=== PATIENT | female | born 1990 | race Caucasian/White ===

== ENCOUNTER 2022-12-02 23:13 | Inpatient (IN) | payer BC, MEDICAID ==
[~2022-12-02] VITALS: Ht 162.6 cm; Wt 98.9 kg
[2022-12-03 00:18] LABS: HEMATOCRIT 39.3 % (36-48); MEAN CORPUSCULAR HEMOGLOBIN 29.4 pg (27.0-33.0); MEAN CORPUSCULAR HGB CONC 33.3 g/dL (32.0-36.0); MEAN CORPUSCULAR VOLUME 88.1 fL (79-99); PLATELET COUNT (AUTO) 237 K/uL (130-400); RED BLOOD CELL COUNT(AUTO) 4.46 MIL/uL (4.00-5.50); RED CELL DISTRIBUTION WIDTH 13.6 % (11.0-15.5); WHITE BLOOD COUNT (AUTO) 11.7 K/uL (4.8-10.8)
[2022-12-03 00:28] LABS: BASOPHILS # (AUTO) 0.04 K/uL (0.00-0.20); BASOPHILS % (AUTO) 0.4 % (0.0-5.0); EOSINOPHILS # (AUTO) 0.18 K/uL (0.00-0.70); EOSINOPHILS % (AUTO) 1.6 % (0.0-8.0); IMMATURE GRANULOCYTE ABSOLUTE 0.07 K/uL (0-1); LYMPHOCYTES # (AUTO) 2.5 K/uL (1.0-4.8); LYMPHOCYTES % (AUTO) 21.7 % (21.0-51.0); MONOCYTES # (AUTO) 0.9 K/uL (0.1-1.0); MONOCYTES % (AUTO) 7.5 % (3.0-13.0); NEUTROPHILS # (AUTO) 7.8 K/uL (1.8-7.7); NEUTROPHILS % (AUTO) 68.2 % (40.0-77.0)
[2022-12-03] MEDS ORDERED: 0.9%NACL 1000ML 1,000 ML IV ONE (00:30)
[2022-12-03 00:37] LABS: APPEARANCE,URINE CLEAR (CLEAR); BILIRUBIN,URINE NEGATIVE (NEGATIVE); COLOR,URINE COLORLESS (YELLOW); GLUCOSE, URINE (UA) NEGATIVE (NEGATIVE); KETONES,URINE NEGATIVE (NEGATIVE); LEUKOCYTE ESTERASE ,URINE NEGATIVE Leu/uL (NEGATIVE); NITRATE,URINE NEGATIVE (NEGATIVE); OCCULT BLOOD,URINE NEGATIVE (NEGATIVE); PROTEIN,URINE NEGATIVE (NEGATIVE); UROBILINOGEN,URINE 0.2 mg/dL (0.2-1.0)
[2022-12-03 00:40] LABS: RAPID GROUP A STREP negative (NEGATIVE)
[2022-12-03 00:43] LABS: SARS-CoV-2, RNA, NAAT NEGATIVE SARS CoV-2 (NEGATIVE)
[2022-12-03 00:45] LABS: ADD UA MICROSCOPIC NO
[2022-12-03 00:53] LABS: INFLUENZA TYPE A Negative For Type A (NEGATIVE); INFLUENZA TYPE B Negative For Type B (NEGATIVE)
[2022-12-03 00:58] LABS: AMPHET/METH SCREEN,URINE NEGATIVE (NEGATIVE); BARBITURATE SCREEN, URINE NEGATIVE (NEGATIVE); BENZODIAZEPINES SCREEN,URINE NEGATIVE (NEGATIVE); CANNABINOID SCREEN,URINE NEGATIVE (NEGATIVE); COCAINE SCREEN,URINE NEGATIVE (NEGATIVE); OPIATE SCREEN,URINE NEGATIVE (NEGATIVE); PHENCYCLIDINE SCREEN,URINE NEGATIVE (NEGATIVE)
[2022-12-03 01:27] LABS: CREATININE 0.8 mg/dL (0.5-1.5); POTASSIUM 4.4 mmol/L (3.5-5.1)
[2022-12-03 01:32] LABS: ALBUMIN 3.1 g/dL (3.5-5.0); BILIRUBIN,TOTAL 0.3 mg/dL (0.2-1.0); TOTAL PROTEIN, SERUM 6.6 g/dL (6.0-8.3)
[2022-12-03] MEDS ORDERED: DiphenhydrAMINE HCL 50 MG/ML VIAL IV PRN (03:00)
[2022-12-03] MEDS ORDERED: ACETAMINOPHEN 325 MG TAB PO PRN ×2 (03:00)
[2022-12-03] MEDS ORDERED: MAG/ALUM/SIMETH 30 ML UDCUP PO PRN (03:00)
[2022-12-03] MEDS ORDERED: GUAIFENESIN-DM 200/20 MG 10 ML PO PRN (03:00)
[2022-12-03] MEDS ORDERED: ONDANSETRON 4MG INJ IV PRN (03:00)
[2022-12-03] MEDS ORDERED: LACTULOSE 20 GM/30 ML UDCUP PO PRN (03:00)
[2022-12-03] MEDS ORDERED: ALBUTEROL 0.083% 2.5 MG/3 ML INH IH PRN (03:00)
[2022-12-03] MEDS ORDERED: HYDRALAZINE 20MG/ML VIAL IV PRN (03:00)
[2022-12-03] MEDS ORDERED: ZOLPIDEM TARTRATE 5 MG TAB PO PRN (03:00)
[2022-12-03] MEDS ORDERED: NITROGLYCERIN 0.4 MG SL TAB SL PRN (03:00)
[2022-12-03 03:14] LABS: THYROID STIMULATING HORMONE 2.88 uIU/mL (0.36-3.74)
[2022-12-03 05:03] LABS: HEMOGLOBIN A1C 4.9 % (4.0-6.0)
[2022-12-03 05:06] LABS: TROPONIN I HIGH SENSITIVITY < 4 ng/L (4-50)
[2022-12-03 05:56] LABS: % IRON SATURATION 12.9 % (22-44); IRON, SERUM 33 mcg/dL (50-170); TOTAL IRON BINDING CAPACITY 255 mcg/dL (250-450)
[2022-12-03] MEDS: LACTATED RINGERS 1000ML 1,000 ML IV SCH ×3 (06:02→22:02)
[2022-12-03 06:54] LABS: BASOPHILS # (AUTO) 0.04 K/uL (0.00-0.20); BASOPHILS % (AUTO) 0.4 % (0.0-5.0); EOSINOPHILS # (AUTO) 0.15 K/uL (0.00-0.70); EOSINOPHILS % (AUTO) 1.6 % (0.0-8.0); HEMATOCRIT 37.1 % (36-48); IMMATURE GRANULOCYTE ABSOLUTE 0.03 K/uL (0-1); LYMPHOCYTES # (AUTO) 2.3 K/uL (1.0-4.8); LYMPHOCYTES % (AUTO) 24.6 % (21.0-51.0); MEAN CORPUSCULAR HEMOGLOBIN 29.4 pg (27.0-33.0); MEAN CORPUSCULAR VOLUME 86.7 fL (79-99); MONOCYTES # (AUTO) 0.6 K/uL (0.1-1.0); MONOCYTES % (AUTO) 6.3 % (3.0-13.0); NEUTROPHILS # (AUTO) 6.1 K/uL (1.8-7.7); NEUTROPHILS % (AUTO) 66.8 % (40.0-77.0); PLATELET COUNT (AUTO) 237 K/uL (130-400); RED BLOOD CELL COUNT(AUTO) 4.28 MIL/uL (4.00-5.50); RED CELL DISTRIBUTION WIDTH 13.7 % (11.0-15.5); WHITE BLOOD COUNT (AUTO) 9.1 K/uL (4.8-10.8)
[2022-12-03 07:15] LABS: ALBUMIN 3.2 g/dL (3.5-5.0); BILIRUBIN,DIRECT 0.1 mg/dL (0.0-0.3); BILIRUBIN,TOTAL 0.4 mg/dL (0.2-1.0); CREATININE 0.6 mg/dL (0.5-1.5); THYROID STIMULATING HORMONE 1.76 uIU/mL (0.36-3.74); TOTAL PROTEIN, SERUM 6.5 g/dL (6.0-8.3)
[2022-12-03 07:35] LABS: INR 0.93 (0.85-1.15); PROTHROMBIN TIME 10.3 SEC (9.6-11.6)
[2022-12-03 07:36] LABS: PARTIAL THROMBOPLASTIN TIME 27.1 SEC (26.3-35.5)
[2022-12-03 08:22] LABS: B-TYPE NATRIURETIC PEPTIDE 12 pg/mL (0-100)
[2022-12-03] MEDS: HEPARIN 5,000 UNIT VIAL SQ SCH ×3 (08:52→20:54)
[2022-12-03] MEDS: FAMOTIDINE 20MG VIAL IV SCH ×2 (08:53→20:54)
[2022-12-03] MEDS ORDERED: FAMOTIDINE 20MG VIAL IV SCH (09:00)
[2022-12-03] MEDS: ACETAMINOPHEN 325 MG TAB PO PRN ×2 (10:59→15:47)
[2022-12-03] MEDS: KETOROLAC 15MG/ML VIAL (15MG/ML) IV PRN (20:54)
[2022-12-03 20:57] VITALS: PULSE 66; RESP 18; O2SAT 97
[2022-12-03 21:30] VITALS: BP 106/58; PULSE 58; RESP 16
[2022-12-04] VITALS (13 sets, daily range): BP systolic 83–105; BP diastolic 48–68; PULSE 18–92; RESP 16–18; O2SAT 97–100
[2022-12-04] MEDS: ACETAMINOPHEN 325 MG TAB PO PRN ×3 (00:55→14:41)
[2022-12-04] MEDS: HEPARIN 5,000 UNIT VIAL SQ SCH ×3 (09:42→19:15)
[2022-12-04] MEDS: FAMOTIDINE 20MG VIAL IV SCH ×2 (09:43→19:16)
[2022-12-04] MEDS: LACTATED RINGERS 1000ML 1,000 ML IV SCH ×2 (09:53→19:00)
[2022-12-04] MEDS: MIDODRINE HCL 5 MG TABLET PO SCH ×2 (15:47→19:16)
[2022-12-05] VITALS (10 sets, daily range): BP systolic 78–127; BP diastolic 41–68; PULSE 64–127; RESP 16–19; O2SAT 97
[2022-12-05] MEDS: LACTATED RINGERS 1000ML 1,000 ML IV SCH (05:00)
[2022-12-05 07:11] LABS: HEMATOCRIT 36.4 % (36-48); MEAN CORPUSCULAR HEMOGLOBIN 29.3 pg (27.0-33.0); RED BLOOD CELL COUNT(AUTO) 4.09 MIL/uL (4.00-5.50); RED CELL DISTRIBUTION WIDTH 13.5 % (11.0-15.5); WHITE BLOOD COUNT (AUTO) 7.3 K/uL (4.8-10.8)
[2022-12-05 07:24] LABS: CREATININE 0.7 mg/dL (0.5-1.5); MAGNESIUM 1.8 mg/dL (1.80-2.40); POTASSIUM 3.7 mmol/L (3.5-5.1)
[2022-12-05] MEDS: FAMOTIDINE 20MG VIAL IV SCH ×2 (09:00→19:53)
[2022-12-05] MEDS: MIDODRINE HCL 5 MG TABLET PO SCH ×3 (09:00→20:03)
[2022-12-05] MEDS: HEPARIN 5,000 UNIT VIAL SQ SCH ×3 (09:00→21:00)
[2022-12-05] MEDS: 0.9%NACL 1000ML 1,000 ML IV SCH ×2 (09:59→17:56)
[2022-12-05] MEDS: ACETAMINOPHEN 325 MG TAB PO PRN (17:57)
[2022-12-05] MEDS: KETOROLAC 15MG/ML VIAL (15MG/ML) IV PRN (19:53)
[2022-12-06] VITALS (7 sets, daily range): BP systolic 91–183; BP diastolic 52–81; PULSE 65–89; RESP 17–18; O2SAT 98
[2022-12-06] MEDS: 0.9%NACL 1000ML 1,000 ML IV SCH ×2 (03:57→09:00)
[2022-12-06] MEDS: FAMOTIDINE 20MG VIAL IV SCH (08:17)
[2022-12-06] MEDS: MIDODRINE HCL 5 MG TABLET PO SCH (08:18)
[2022-12-06] MEDS: ACETAMINOPHEN 325 MG TAB PO PRN (08:41)
[2022-12-06] MEDS: HEPARIN 5,000 UNIT VIAL SQ SCH ×2 (09:00→13:24)
== END 2022-12-06 15:40 | disposition home or self-care (01) | DRG 316 ==
LOC: EDH 23:13 → EDHIP 12-03 02:49 → OBSVTOIN 12-03 02:49 → 3BH 12-03 21:30
PROVIDERS: ADMIT Internal Medicine Critical Care Medicine; ATTEND Internal Medicine Critical Care Medicine
DX: I95.89 Other hypotension (principal); E86.1 Hypovolemia; F17.210 Nicotine dependence, cigarettes, uncomplicated; Z20.822 Contact with and (suspected) exposure to COVID-19; Z82.49 Family history of ischemic heart disease and other diseases of the circulatory system; Z90.49 Acquired absence of other specified parts of digestive tract
CPT/HCPCS: 36415; 70450; 71045; 80048; 80053; 80076; 80305; 81003; 81025; 82140; 82150; 82533; 82550; 83036; 83540; 83550; 83605; 83735; 83880; 84100; 84145; 84443; 84484; 84702; 85025; 85027; 85378; 85610; 85730; 87040; 87088; 87635; 87804; 87880; 93005; 93306; 93356; 94664; C9803; G0378; J1644; J1885; J3490; J7120

== ENCOUNTER 2024-01-23 16:43 | Emergency (ER) | payer BC ==
[~2024-01-23] VITALS: Ht 165.1 cm; Wt 98.0 kg
[2024-01-23 17:25] LABS: BASOPHILS # (AUTO) 0.05 K/uL (0.00-0.20); BASOPHILS % (AUTO) 0.6 % (0.0-5.0); EOSINOPHILS # (AUTO) 0.24 K/uL (0.00-0.70); EOSINOPHILS % (AUTO) 2.8 % (0.0-8.0); HEMATOCRIT 38.2 % (36-48); IMMATURE GRANULOCYTE ABSOLUTE 0.03 K/uL (0-1); LYMPHOCYTES % (AUTO) 23.2 % (21.0-51.0); MEAN CORPUSCULAR VOLUME 87.8 fL (79-99); MONOCYTES # (AUTO) 0.6 K/uL (0.1-1.0); MONOCYTES % (AUTO) 6.8 % (3.0-13.0); NEUTROPHILS # (AUTO) 5.8 K/uL (1.8-7.7); NEUTROPHILS % (AUTO) 66.3 % (40.0-77.0); PLATELET COUNT (AUTO) 236 K/uL (130-400); RED BLOOD CELL COUNT(AUTO) 4.35 MIL/uL (4.00-5.50); RED CELL DISTRIBUTION WIDTH 13.3 % (11.0-15.5); WHITE BLOOD COUNT (AUTO) 8.7 K/uL (4.8-10.8)
[2024-01-23 17:34] LABS: CREATININE 0.8 mg/dL (0.5-1.0); POTASSIUM 3.7 mmol/L (3.5-5.1)
[2024-01-23 17:45] LABS: BILIRUBIN,URINE NEGATIVE (NEGATIVE); COLOR,URINE LIGHT-YELLOW (YELLOW); GLUCOSE, URINE (UA) NEGATIVE (NEGATIVE); KETONES,URINE NEGATIVE (NEGATIVE); LEUKOCYTE ESTERASE ,URINE NEGATIVE Leu/uL (NEGATIVE); NITRATE,URINE 2+ (NEGATIVE); OCCULT BLOOD,URINE SMALL (NEGATIVE); PH,URINE 6.5 (5.0-8.0); PROTEIN,URINE NEGATIVE (NEGATIVE); UROBILINOGEN,URINE 0.2 mg/dL (0.2-1.0)
[2024-01-23 17:47] LABS: ADD UA MICROSCOPIC YES; APPEARANCE,URINE HAZY (CLEAR)
[2024-01-23 17:57] LABS: BACTERIA,URINE MANY /HPF (None Seen); MUCUS,URINE RARE LPF (None Seen); SQUAMOUS EPITHELIAL CELL,UR RARE /HPF (0-2); WBC,URINE 0-1 /HPF (0-1)
[2024-01-23] MEDS ORDERED: CEPH500B PO (18:23)
[2024-01-23] MEDS: cefTRIAXone 1G VIAL IVPB ONE (18:29)
[2024-01-23 19:09] VITALS: BP 118/65; PULSE 82; RESP 18; TEMP 98.8; O2SAT 98
== END 2024-01-23 19:30 | disposition home or self-care (01) ==
LOC: EDH 16:43
DX: O23.41 Unspecified infection of urinary tract in pregnancy, first trimester (principal); N39.0 Urinary tract infection, site not specified; R10.2 Pelvic and perineal pain; Z3A.01 Less than 8 weeks gestation of pregnancy; Z79.899 Other long term (current) drug therapy; Z90.49 Acquired absence of other specified parts of digestive tract
CPT/HCPCS: 99284; 96365; 76801; 80048; 84702; 85025; 87086 ×2; 87186; 81001; 36415; J0696

== ENCOUNTER 2024-01-26 02:05 | Emergency (ER) | payer BC ==
[~2024-01-26] VITALS: Ht 165.1 cm; Wt 98.9 kg
[~2024-01-26 02:05] MED LIST: CEPH500B PO
[2024-01-26] MEDS: LACTATED RINGERS 1000ML 1,000 ML IV ONE (03:08)
[2024-01-26] MEDS: acetaMINOPHEN 500 MG TABLET PO ONE (03:08)
[2024-01-26 03:12] VITALS: TEMP 99.1
[2024-01-26 03:18] LABS: BASOPHILS # (AUTO) 0.05 K/uL (0.00-0.20); BASOPHILS % (AUTO) 0.5 % (0.0-5.0); EOSINOPHILS # (AUTO) 0.28 K/uL (0.00-0.70); EOSINOPHILS % (AUTO) 2.6 % (0.0-8.0); IMMATURE GRANULOCYTE ABSOLUTE 0.05 K/uL (0-1); LYMPHOCYTES # (AUTO) 2.7 K/uL (1.0-4.8); LYMPHOCYTES % (AUTO) 25.1 % (21.0-51.0); MEAN CORPUSCULAR HEMOGLOBIN 29.4 pg (27.0-33.0); MEAN CORPUSCULAR VOLUME 86.4 fL (79-99); MONOCYTES # (AUTO) 0.6 K/uL (0.1-1.0); NEUTROPHILS % (AUTO) 65.3 % (40.0-77.0); PLATELET COUNT (AUTO) 255 K/uL (130-400); RED BLOOD CELL COUNT(AUTO) 4.63 MIL/uL (4.00-5.50); RED CELL DISTRIBUTION WIDTH 13.2 % (11.0-15.5); WHITE BLOOD COUNT (AUTO) 10.7 K/uL (4.8-10.8)
[2024-01-26 03:24] LABS: CREATININE 0.7 mg/dL (0.5-1.0); POTASSIUM 3.8 mmol/L (3.5-5.1)
[2024-01-26] MEDS ORDERED: CEPH500B PO (05:51)
[2024-01-26 05:53] VITALS: BP 110/55; PULSE 99; RESP 18; O2SAT 96
[2024-01-26] MEDS ORDERED: CEFTRIAXONE 2GM VIAL IVPB ONE (06:00)
== END 2024-01-26 06:14 | disposition home or self-care (01) ==
LOC: EDH 02:05
DX: O03.9 Complete or unspecified spontaneous abortion without complication (principal); R10.2 Pelvic and perineal pain; Z3A.01 Less than 8 weeks gestation of pregnancy; Z79.899 Other long term (current) drug therapy; Z90.49 Acquired absence of other specified parts of digestive tract; Z98.890 Other specified postprocedural states
CPT/HCPCS: 99284; 76801; 80048; 84702; 85025; 36415; 88305; J7120

== ENCOUNTER 2024-01-27 19:28 | Emergency (ER) | payer BC ==
[~2024-01-27] VITALS: Ht 165.1 cm; Wt 98.9 kg
[2024-01-27] MEDS: 0.9%NACL 1000ML 1,000 ML IV ONE (20:00)
[2024-01-27] MEDS: acetaMINOPHEN 500 MG TABLET PO ONE (20:11)
[2024-01-27 20:15] LABS: BASOPHILS # (AUTO) 0.06 K/uL (0.00-0.20); BASOPHILS % (AUTO) 0.5 % (0.0-5.0); EOSINOPHILS # (AUTO) 0.27 K/uL (0.00-0.70); EOSINOPHILS % (AUTO) 2.4 % (0.0-8.0); HEMATOCRIT 35.8 % (36-48); IMMATURE GRANULOCYTE ABSOLUTE 0.05 K/uL (0-1); LYMPHOCYTES # (AUTO) 2.5 K/uL (1.0-4.8); LYMPHOCYTES % (AUTO) 21.7 % (21.0-51.0); MEAN CORPUSCULAR HEMOGLOBIN 29.2 pg (27.0-33.0); MEAN CORPUSCULAR HGB CONC 33.8 g/dL (32.0-36.0); MEAN CORPUSCULAR VOLUME 86.5 fL (79-99); MONOCYTES # (AUTO) 0.7 K/uL (0.1-1.0); MONOCYTES % (AUTO) 6.4 % (3.0-13.0); NEUTROPHILS # (AUTO) 7.8 K/uL (1.8-7.7); NEUTROPHILS % (AUTO) 68.6 % (40.0-77.0); PLATELET COUNT (AUTO) 248 K/uL (130-400); RED BLOOD CELL COUNT(AUTO) 4.14 MIL/uL (4.00-5.50); RED CELL DISTRIBUTION WIDTH 13.2 % (11.0-15.5); WHITE BLOOD COUNT (AUTO) 11.3 K/uL (4.8-10.8)
[2024-01-27 20:26] LABS: CREATININE 0.7 mg/dL (0.5-1.0); POTASSIUM 3.8 mmol/L (3.5-5.1)
[2024-01-27 21:13] LABS: APPEARANCE,URINE CLEAR (CLEAR); BILIRUBIN,URINE NEGATIVE (NEGATIVE); COLOR,URINE LIGHT-YELLOW (YELLOW); GLUCOSE, URINE (UA) NEGATIVE (NEGATIVE); KETONES,URINE NEGATIVE (NEGATIVE); LEUKOCYTE ESTERASE ,URINE 25 Leu/uL (NEGATIVE); NITRATE,URINE NEGATIVE (NEGATIVE); OCCULT BLOOD,URINE LARGE (NEGATIVE); PROTEIN,URINE NEGATIVE (NEGATIVE); UROBILINOGEN,URINE 0.2 mg/dL (0.2-1.0)
[2024-01-27 21:14] LABS: ADD UA MICROSCOPIC YES
[2024-01-27 21:16] LABS: BACTERIA,URINE RARE /HPF (None Seen); MUCUS,URINE RARE LPF (None Seen); RBC,URINE 51-100 /HPF (0-1); SQUAMOUS EPITHELIAL CELL,UR RARE /HPF (0-2); UNCLASSIFIED CRYSTAL 1 /HPF (None Seen)
[2024-01-27 23:14] VITALS: BP 107/54; PULSE 70; RESP 18; TEMP 97.9; O2SAT 98
== END 2024-01-27 23:25 | disposition home or self-care (01) ==
LOC: EDH 19:28
DX: O03.9 Complete or unspecified spontaneous abortion without complication (principal); R10.2 Pelvic and perineal pain; Z98.890 Other specified postprocedural states; Z90.49 Acquired absence of other specified parts of digestive tract
CPT/HCPCS: 36415; 76801; 80048; 81001; 84702; 85025; 86900; 86901; 87086